=== PATIENT | male | born 1990 | race Caucasian/White ===

== ENCOUNTER 2023-10-17 21:55 | Emergency (ER) | payer OTHER, SELFPAY ==
[2023-10-17 22:03] VITALS: BP 144/72; PULSE 88; RESP 18; TEMP 36.8; O2SAT 99; BMI 23.1
[2023-10-17] MEDS: TET,DIPH,PERTUSS(ACELL),VAC/PF 0.5 ML SYRINGE IM (22:25)
[2023-10-17] MEDS: AMOXICILLIN/CLAV 875/125 MG 1 TAB PO (22:36)
--- NOTE | 2023-10-17 22:41 | ED.ANIMALBIT ---
HPI - Animal Bite General Chief Complaint: Animal Bite Stated Complaint: dog bite to rt 4th finger Time Seen by Provider: 10/17/23 21:56 Source: patient Mode of arrival: Ambulatory History of Present Illness HPI narrative: 33-year-old male presents for evaluation of dog bite to right ring finger. Patient was at a friend's house and he went to go get the friend's dog. He states that he thinks he started of the animal and it last out, biting his finger. The animal is up-to-date on rabies vaccinations. He does not know when his last tetanus shot was administered, he thinks it may have been when he was a kid. Related Data Previous Rx's Medication Instructions Recorded amoxicillin 875 mg-potassium 1 tab PO Q12H 10 days #20 tabs 10/17/23 clavulanate 125 mg tablet Allergies Allergy/AdvReac Type Severity Reaction Status Date / Time No Known Drug Allergies Allergy Verified 10/17/23 22:03 Review of Systems Review of Systems Narrative: Negative except as noted above Patient History alcohol intake frequency: holidays/special occasions only Substance Use Type: marijuana Exam Initial Vital Signs Initial Vital Signs: Vital Signs Temperature 98.3 F 10/17/23 22:03 Pulse Rate 88 10/17/23 22:03 Respiratory Rate 18 10/17/23 22:03 Blood Pressure 144/72 H 10/17/23 22:03 Pulse Oximetry 99 10/17/23 22:03 Oxygen Delivery Method Room Air 10/17/23 22:03 Const: Awake, alert, no acute distress, nontoxic appearing MSK: full range of motion, pulses equal Skin: Warm, Dry, 3cm avulsion injury to dorsum R index finger. 1 cm superficial laceration at inner base of R ring finger Neuro: AO x3, CN II-XII grossly intact, moves all extremities Course Orders Ordered: Discontinued Medications Amoxicillin/Clavulanate Potassium (Amoxicillin/Clav 875/125 Mg) 1 tab PO NOW ONE Stop: 10/17/23 22:27 Last Admin: 10/17/23 22:36 Dose: 1 tab Documented By: Bacitracin (Bacitracin Oint 0.9 Gm Pckt) 1 applic TOP NOW ONE Stop: 10/17/23 22:41 Last Admin: 10/17/23 22:45 Dose: 1 applic Documented By: DASHA Diphtheria/Tetanus/Acell Pertussis (Tet,Diph,Pertuss(Acell),Vac/Pf 0.5 Ml Syringe) 0.5 ml IM .ONCE ONE Stop: 10/17/23 22:13 Last Admin: 10/17/23 22:25 Dose: 0.5 ml Documented By: AB Vital Signs Vital signs: Vital Signs - 8 hr 10/17/23 22:03 10/17/23 22:55 Temperature 98.3 F Pulse Rate 88 85 Respiratory Rate 18 18 Blood Pressure 144/72 H 135/62 Pulse Oximetry 99 95 Oxygen Delivery Method Room Air Room Air MDM - Animal Bite Differential Diagnosis Differential diagnosis: Likely bite by animal, cat bite and dog bite MDM Narrative Medical decision making narrative: Provoked animal bite to right hand. There are superficial wounds along the right ring finger without evidence of deep lacerations, tendon involvement, vascular compromise. Patient has full range of motion of all of his digits as well as intact sensation. Tetanus shot updated. Wounds copiously irrigated and bandaged appropriately. Discharged on 10 days of Augmentin for prophylaxis. ED return precautions discussed at bedside. Patient expressed understanding of the plan and is in agreement at this time. All questions answered at the time of discharge. Discharge Plan Departure Patient Disposition: Home Clinical Impression: Dog bite Instructions: DI for Dog Bite Activity Restrictions/Additional Instructions: Keep your wound clean and dry. You may apply vitamin E oil or bacitracin to keep the wound soft so it does bleed when he bends her finger. Take all antibiotics as prescribed to prevent infection. If you work with her hands wear gloves or other protective measures to prevent exposing your wound to dirt or other bacteria. Prescriptions: New amoxicillin-pot clavulanate 875-125 mg tablet 1 tab PO Q12H 10 Days Qty: 20 0RF Stand Alone Forms: Patient Portal/API
[2023-10-17] MEDS: BACITRACIN OINT 0.9 GM PCKT 1 APPLIC TOP (22:45)
[2023-10-17 22:55] VITALS: BP 135/62; PULSE 85; RESP 18; O2SAT 95
== END 2023-10-17 22:56 | disposition home or self-care (01) ==
PROVIDERS: Emergency Provider Emergency Medicine
DX: S61.254A Open bite of right ring finger without damage to nail, initial encounter (principal); W54.0XXA Bitten by dog, initial encounter; Z23 Encounter for immunization
CPT/HCPCS: 90471; 99283; 90715